=== PATIENT | female | born 1965 | race Caucasian/White ===

== ENCOUNTER 2017-11-05 23:46 | Emergency (ER) | payer OTHER, SELFPAY ==
[2017-11-06 00:04] VITALS: BP 186/93; PULSE 69; RESP 16; TEMP 36.6; O2SAT 100; BMI 26.2
--- NOTE | 2017-11-06 00:18 | DI.CT.S_ITS ---
PROCEDURE: CT HEAD/BRAIN WO CON INDICATIONS: worst headache of life TECHNIQUE: Noncontrast 4.5 mm thick angled axial sections acquired from the foramen magnum to the vertex, with coronal and sagittal reformats. For radiation dose reduction, the following was used: automated exposure control, adjustment of mA and/or kV according to patient size. COMPARISON: Outside Film, MR, MR BRAIN W&WO CON, 04/09/2013, 14:22. [facility], CT, HEAD WITHOUT CONTRAST, 07/06/2015, 10:50. FINDINGS: Preliminary report by evening or night nurse supervisor radiology Image quality: Excellent. CSF spaces: Basal cisterns are patent. No extra-axial fluid collections. Ventricles are normal in size and shape. Brain: No midline shift. No intracranial masses or hemorrhage. Butler-white matter interface is normal. Skull and face: Calvarium and visualized facial bones are intact, without suspicious lesions. Sinuses: Visualized sinuses and mastoids are clear. IMPRESSION: Normal CT brain scan. No evidence of intracranial hemorrhage. Findings are concordant with the preliminary report. Dictated by: Walt Delong M.D. on 11/06/2017 at 8:12 Approved by: Walt Delong M.D. on 11/06/2017 at 8:17
--- NOTE | 2017-11-06 00:23 | ED_ITS ---
HPI - Head Injury General Chief complaint: Head Injury Stated complaint: severe throbbing pain in back of head/neck Time Seen by Provider: 11/06/17 00:11 Source: patient Mode of arrival: ambulatory Limitations: no limitations History of Present Illness HPI Narrative: Patient is a 52-year-old female who presents with severe sudden onset headache. It started while she was having a bowel movement. She has a history of IBS and has had multiple episodes of diarrhea today. This evening around 10 30 her headache started at the base of her head. She denies any fever or chills. She has neck pain but always has neck pain due to spinal stenosis. She took tramadol and atenolol prior to arrival. MD Complaint: head pain Related Data Home Medications Medication Instructions Recorded Confirmed MECLIZINE HCL 25 mg PO #0 11/28/11 atenolol 25 mg PO QDAY #0 11/28/11 montelukast [Singulair] QDAY #0 11/28/11 Allergies Allergy/AdvReac Type Severity Reaction Status Date / Time iodine [IODINE] Allergy Intermediate Unverified 07/05/17 12:22 lansoprazole [LANSOPRAZOLE] Allergy Intermediate Unverified 07/05/17 12:22 KIWI Allergy Unknown Uncoded 07/05/17 12:22 Review of Systems Review of Systems GENERAL: Denies chills, fatigue, malaise, fever, sweats, travel HEENT: Denies sinus pain, ear pain, sore throat, difficulty swallowing, neck pain RESPIRATORY: Denies dyspnea, cough, wheezing, hemoptysis, sputum. CARDIOVASCULAR: Denies chest pain, palpitations, orthopnea, edema GASTROINTESTINAL: Denies nausea, vomiting, abdominal pain, diarrhea, constipation, melena. : Denies dysuria, frequency, incontinence, hematuria, urinary retention, flank pain. MUSCULOSKELETAL: Denies weakness, joint pain, or bony pain SKIN: No rash, no erythema, no pruritus NEUROLOGIC: + headache see HPI PSYCHIATRIC: No concerning psychosocial issues. 12 point review of systems is negative except for those stated above and HPI [facility] Medical History Hypertension (Acute) Social History Smoking Status: Current some day smoker Exam Initial Vital Signs Initial Vital Signs: Vital Signs Temperature 97.9 F 11/06/17 00:04 Pulse Rate 69 11/06/17 00:04 Respiratory Rate 16 11/06/17 00:04 Blood Pressure 186/93 H 11/06/17 00:04 Pulse Oximetry 100 11/06/17 00:04 GENERAL: Well-appearing, well-nourished and in no acute distress. HEENT: Head atraumatic,EOMI, pupils reactive, neck is supple no meningeal signs CARDIOVASCULAR: Regular rate and rhythm without murmurs, rubs or gallops. RESPIRATORY: Breath sounds equal bilaterally, no wheezes rales or rhonchi. ABDOMEN: Soft, nontender. Normoactive bowel sounds all 4 quadrants. No guarding or rebound. : No CVA tenderness EXTREMITIES: Normal range of motion, no clubbing or edema. Neurovascularly intact NEUROLOGICAL: Alert and oriented x4.Normal gait and speech. Cranial nerves II through XII grossly intact. Good [id number], good bgcr-qa-cghp, strength equal bilaterally, no dysarthria or aphasia, sensation in tact to soft touch bilaterally, no visual changes, no facial droop SKIN: Warm, dry, no laceration, no petechiae, no rashes or lesions. Course Orders Ordered: ED Orders 11/06/17 00:18 CT head/brain wo con Stat 11/06/17 00:20 Complete Blood Count AUTO DIFF Stat Comprehensive Metabolic Panel Stat Discontinued Medications Sodium Chloride (Normal Saline 0.9%) 1,000 mls @ 1,000 mls/hr IV BOLUS ONE Stop: 11/06/17 01:17 Last Infusion: 11/06/17 03:10 Dose: 0 mls/hr Admin: 11/06/17 02:00 Dose: 1,000 mls/hr Ketorolac Tromethamine (Toradol) 30 mg IV NOW ONE Stop: 11/06/17 01:54 Last Admin: 11/06/17 02:00 Dose: 30 mg Morphine Sulfate (Morphine) 2 mg IV NOW ONE Stop: 11/06/17 00:19 Last Admin: 11/06/17 00:27 Dose: 2 mg Ondansetron HCl (Zofran) 4 mg IV NOW ONE Stop: 11/06/17 00:19 Last Admin: 11/06/17 00:27 Dose: 4 mg Vital Signs - 8 hr 11/06/17 00:04 11/06/17 00:27 11/06/17 02:05 Temperature 97.9 F Pulse Rate 69 67 Respiratory Rate 16 16 Blood Pressure 186/93 H Blood Pressure [Left Arm] 170/88 H 137/71 H Pulse Oximetry 100 99 11/06/17 03:20 Temperature 98.1 F Pulse Rate 74 Respiratory Rate 16 Blood Pressure 115/63 Blood Pressure [Left Arm] Pulse Oximetry 98 MDM - Head Injury Differential Diagnosis Differential diagnosis: Likely subarachnoid hematoma and subdural hematoma Lab Data Attestation: I reviewed the patient's lab results. Result diagrams: 11/06/17 00:20 11/06/17 00:20 Lab Results 11/06/17 11/06/17 Range/Units 00:20 00:20 WBC 9.7 (4.5-11.0) X10^3/uL RBC 4.39 (4.0-5.2) X10^6/uL Hgb 14.2 (12.0-16.0) g/dL Hct 40.3 (36-46) % MCV 91.7 (80-100) fL MCH 32.2 (26-34) PG MCHC 35.1 (30-36) % RDW 13.3 (11.6-14.8) % Plt Count 221 (150-400) X10^3/uL Neut % (Auto) 67.6 (50-75) % Lymph % (Auto) 15.0 L (25-40) % [place] % (Auto) 9.3 (3-14) % Eos % (Auto) 7.0 H (2-4) % Baso % (Auto) 1.1 (0-2) % Neut # (Auto) 6600 H (3777-5102) /uL Sodium 138 (137-145) mmol/L Potassium 3.3 L (3.4-5.1) mmol/L Chloride 100 (98-107) mmol/L Carbon Dioxide 27 (22-32) mmol/L BUN 15 (7-17) mg/dL Creatinine 0.90 (0.52-1.04) mg/dL Estimated GFR > 60.0 (>60) mL/min BUN/Creatinine Ratio 16.7 (6-22) Glucose 130 H (70-100) mg/dL Calcium 9.8 (8.4-10.2) mg/dL Total Bilirubin 0.6 (0.2-1.3) mg/dL AST 33 (14-36) IU/L ALT 40 (9-52) IU/L Alkaline Phosphatase 113 (38-126) U/L Total Protein 7.2 (6.3-8.2) g/dL Albumin 4.5 (3.5-5.0) g/dL Globulin 2.7 (1.7-4.1) g/dL Albumin/Globulin Ratio 1.7 (1.0-2.8) Imaging Data CT scan - head: 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 Head CT is negative. Toradol given which helped significantly. She has no meningeal signs afebrile no leukocytosis. We did discuss Lumbar Puncture To fully rule out subarachnoid hemorrhage. However at this time she has had such relief with toradol and no focal deficits, it was decided with patient no LP. I discussed all findings with the patient and spouse, Education has been performed regarding treatment plan, diagnosis, warning signs and symptoms and all concerns have been addressed. Verbally agree with and understood all of the above. Discharge Plan Departure Patient Disposition: Home, Self-Care Clinical Impression: Headache Discharge Date/Time: 11/06/17 03:22 Interventions: ED Discharge Assessment Last Done: 11/06/17 03:20 Instructions: DI for Headache Activity Restrictions/Additional Instructions: *You have been diagnosed with headache *What to do: Blood work and CT are negative at this time *Continue to take medications as directed *Follow up with your primary care provider in 2-3 days *Return to ER if you should have worsening headache, weakness, visual changes, vomiting or any new, worsening or concerning symptoms Prescriptions: No Action atenolol 25 MG tablet 25 mg PO QDAY Qty: 0 RF: 0 montelukast [Singulair] 10 MG tablet QDAY Qty: 0 RF: 0 MECLIZINE HCL 25 mg PO Qty: 0 RF: 0 Referrals: Davy Yang MD [Primary Care Provider] -
[2017-11-06 00:27] VITALS: BP 170/88
[2017-11-06] MEDS: MORPHINE 2 MG/ML INJ IV (00:27)
[2017-11-06] MEDS: ONDANSETRON 4 MG/2 ML INJ IV (00:27)
[2017-11-06 00:29] LABS: Add Manual Diff / Slide Review NO; Basophils Percent Auto 1.1 % (0-2); Hematocrit 40.3 % (36-46); Hemoglobin 14.2 g/dL (12.0-16.0); Mean Corpuscular HGB Conc 35.1 % (30-36); Mean Corpuscular Hemoglobin 32.2 PG (26-34); Mean Corpuscular Volume 91.7 fL (80-100); Monocytes Percent Auto 9.3 % (3-14); Neutrophils Absolute Auto 6600 /uL (3000-5900); Neutrophils Percent Auto 67.6 % (50-75); Platelet Count 221 X10^3/uL (150-400); Red Blood Cell Count 4.39 X10^6/uL (4.0-5.2); Red Cell Distribution Width 13.3 % (11.6-14.8); White Blood Cell Count 9.7 X10^3/uL (4.5-11.0)
[2017-11-06 00:42] LABS: Alanine Aminotransferase 40 IU/L (9-52); Albumin 4.5 g/dL (3.5-5.0); Albumin Globulin Ratio 1.7 (1.0-2.8); Alkaline Phosphatase 113 U/L (38-126); Aspartate Aminotransferase 33 IU/L (14-36); BUN Creatinine Ratio 16.7 (6-22); Bilirubin Total 0.6 mg/dL (0.2-1.3); Blood Urea Nitrogen 15 mg/dL (7-17); Calcium 9.8 mg/dL (8.4-10.2); Carbon Dioxide 27 mmol/L (22-32); Chloride 100 mmol/L (98-107); Estimated Glomerular Filt Rate > 60.0 mL/min (>60); Globulin 2.7 g/dL (1.7-4.1); Glucose 130 mg/dL (70-100); HEMOLYSIS < 15 (0-50); Potassium 3.3 mmol/L (3.4-5.1); Sodium 138 mmol/L (137-145); Total Protein 7.2 g/dL (6.3-8.2)
[2017-11-06] MEDS: KETOROLAC 60 MG/2 ML VIAL 30 MG IV (02:00)
[2017-11-06] MEDS: SODIUM CHLORIDE 0.9% 1,000 ML 1000 ML IV (02:00)
[2017-11-06 02:05] VITALS: BP 137/71; PULSE 67; RESP 16; O2SAT 99
[2017-11-06 03:20] VITALS: BP 115/63; PULSE 74; RESP 16; TEMP 36.7; O2SAT 98
== END 2017-11-06 03:22 | disposition home or self-care (01) ==
PROVIDERS: Emergency Provider Emergency Medicine; PCP Family Medicine
DX: R51 Headache (principal)
CPT/HCPCS: 36591; 70450; 80053; 85025; 96361; 96374; 96375; 99283; 99284; 99291; J1885; J2270; J2405

== ENCOUNTER 2017-12-20 13:07 | Emergency (ER) | payer OTHER, SELFPAY ==
[2017-12-20] VITALS (7 sets, daily range): BP systolic 104–157; BP diastolic 60–81; PULSE 65–83; RESP 13–22; TEMP 37.1; O2SAT 96–98; BMI 26.2
--- NOTE | 2017-12-20 13:16 | ED_ITS ---
HPI - Chest Pain General Chief Complaint: Chest Pain Stated Complaint: states chest pain and seratonin syndrom Time Seen by Provider: 12/20/17 13:16 Source: patient Mode of arrival: ambulatory Limitations: no limitations History of Present Illness HPI narrative: Patient is a 52-year-old female here for evaluation of chest pain. She states that it started approximately 2 hr prior to arrival here in the emergency department. She was at work [place]ing [place] when the symptoms started. She does state that is a burning sensation that is retrosternal. She states she also does upper abdominal pain. Also has had a lot of burping and gas. No prior abdominal surgeries. No fevers. No shortness of breath. Pain not worse with palpation or movement. Patient also is concerned about the potential for serotonin syndrome. She states that she has been told in the past that she is on some medicines that could potentially cause this. Patient denies any fevers, vision changes, tremors,. Related Data Home Medications Medication Instructions Recorded Confirmed atenolol 25 mg PO QDAY #0 11/28/11 12/20/17 Equate Gas Relieve & Prevention 1 tab PO PRN PRN 12/20/17 12/20/17 Liver Aid 1 cap PO DAILY 12/20/17 12/20/17 Triple Turmeric 1 cap PO DAILY 12/20/17 12/20/17 acetaminophen [Tylenol 8 Hour] 1 tab PO PRN PRN 12/20/17 12/20/17 albuterol sulfate [ProAir HFA] 1 puff INHALATION DIRECTED 12/20/17 12/20/17 [id number] 1 tab PO PRN PRN 12/20/17 12/20/17 [Excedrin Migraine] cyclobenzaprine 10 mg PO TID PRN 12/20/17 12/20/17 epinephrine [EpiPen] 0.3 ml IM PRN PRN 12/20/17 12/20/17 gabapentin [Neurontin] 600 mg PO BID 12/20/17 12/20/17 hydrochlorothiazide 25 mg PO DAILY 12/20/17 12/20/17 loratadine 10 mg PO DAILY 12/20/17 12/20/17 meclizine [Travel Sickness 25 mg PO DIRECTED 12/20/17 12/20/17 (meclizine)] pravastatin 10 mg PO BEDTIME 12/20/17 12/20/17 rizatriptan 5 mg PO PRN PRN MDD 30 mg 12/20/17 12/20/17 sertraline 1 tab PO DAILY 12/20/17 12/20/17 simethicone 125 mg PO BID-QID PRN 12/20/17 12/20/17 tramadol 50 mg PO BID PRN 12/20/17 12/20/17 Allergies Allergy/AdvReac Type Severity Reaction Status Date / Time iodine [IODINE] Allergy Intermediate Unverified 07/05/17 12:22 lansoprazole [LANSOPRAZOLE] Allergy Intermediate Unverified 07/05/17 12:22 KIWI Allergy Unknown Uncoded 07/05/17 12:22 Review of Systems Constitutional Denies fatigue, Denies fever(s), Denies headache(s), Denies lethargy, Denies malaise and Denies weakness ENT Ears, Nose, Mouth, and Throat: Denies vertigo, Denies dizziness and Denies headache(s) Cardiovascular Reports chest pain, Denies syncope, Denies leg edema, Denies palpitations, Denies dyspnea and Denies dyspnea on exertion Respiratory Denies cough, Denies dyspnea and Denies dyspnea on exertion Gastrointestinal Gastrointestinal: Denies abdominal pain, Denies diarrhea, Denies nausea and Denies vomiting Musculoskeletal Denies myalgias and Denies arthralgias Integumentary/Breasts Denies lesions and Denies rash Neurologic Denies behavioral changes, Denies vertigo, Denies dizziness, Denies syncope, Denies headache(s) and Denies weakness Psychiatric Denies behavioral changes Endocrine Denies fatigue and Denies palpitations Hematologic/Lymphatic Denies easy bleeding and Denies easy bruising [facility] Medical History Hypertension (Acute) Surgical History No pertinent past surgical history (Acute) Social History Smoking Status: Current some day smoker Exam Initial Vital Signs Initial Vital Signs: Vital Signs Temperature 98.7 F 12/20/17 13:16 Pulse Rate 83 12/20/17 13:16 Respiratory Rate 13 12/20/17 13:16 Blood Pressure 157/76 H 12/20/17 13:16 Pulse Oximetry 98 12/20/17 13:16 Const General: cooperative, healthy appearing, comfortable, well developed, well groomed and No acute distress Orientation: alert, awake and oriented x3 Resp Effort & Inspection: normal respiratory effort Auscultation: clear to auscultation bilaterally Cardio Rate: regular rate Rhythm: regular rhythm Heart Sounds: no murmurs Pulses: radial pulses present GI Inspection: normal to inspection and abdominal wall ecchymosis Palpation: soft and No tender Skin Lesions: no lesions Rashes: no rashes Neuro General: alert, awake and oriented x3 Cognition: normal cognition Speech: speech normal Gait: normal gait Motor: muscle tone normal throughout Sensory Exam: no sensory deficits noted Extrem General: normal to inspection and capillary refill normal Psych Appearance: grossly normal and well kempt Course Orders Ordered: ED Orders 12/20/17 13:16 EKG-12 Lead Stat 12/20/17 13:20 B Type Natriuretic Peptide Stat Complete Blood Count AUTO DIFF Stat Comprehensive Metabolic Panel Stat Troponin I Stat 12/20/17 13:21 XR chest 1V Stat 12/20/17 13:35 Lactate (Lactic Acid) Stat 12/20/17 16:56 Troponin I Stat Vital Signs - 8 hr 12/20/17 13:16 12/20/17 13:30 12/20/17 14:00 Temperature 98.7 F Pulse Rate 83 71 67 Respiratory Rate 13 17 19 Blood Pressure 157/76 H Blood Pressure [Left Arm] 130/81 108/60 Pulse Oximetry 98 96 97 12/20/17 14:30 12/20/17 15:00 12/20/17 15:30 Temperature Pulse Rate 68 72 65 Respiratory Rate 19 22 18 Blood Pressure Blood Pressure [Left Arm] 111/60 120/62 104/66 Pulse Oximetry 98 97 97 12/20/17 16:00 Temperature Pulse Rate 65 Respiratory Rate 15 Blood Pressure Blood Pressure [Left Arm] 106/65 Pulse Oximetry 98 MDM - Chest Pain Lab Data Attestation: I reviewed the patient's lab results. Result diagrams: 12/20/17 13:20 12/20/17 13:20 Lab Results 12/20/17 12/20/17 12/20/17 Range/Units 13:20 13:20 13:20 WBC 9.6 (4.5-11.0) X10^3/uL RBC 4.58 (4.0-5.2) X10^6/uL Hgb 14.4 (12.0-16.0) g/dL Hct 41.3 (36-46) % MCV 90.3 (80-100) fL MCH 31.4 (26-34) PG MCHC 34.7 (30-36) % RDW 13.0 (11.6-14.8) % Plt Count 233 (150-400) X10^3/uL Neut % (Auto) 54.3 (50-75) % Lymph % (Auto) 28.7 (25-40) % [place] % (Auto) 8.6 (3-14) % Eos % (Auto) 7.8 H (2-4) % Baso % (Auto) 0.6 (0-2) % Neut # (Auto) 5200 (4149-9071) /uL Sodium 143 (137-145) mmol/L Potassium 3.0 L (3.4-5.1) mmol/L Chloride 101 (98-107) mmol/L Carbon Dioxide 31 (22-32) mmol/L BUN 22 H (7-17) mg/dL Creatinine 1.00 (0.52-1.04) mg/dL Estimated GFR 58.0 L (>60) mL/min BUN/Creatinine Ratio 22.0 (6-22) Glucose 121 H (70-100) mg/dL Lactate (0.7-2.1) mmol/L Calcium 9.6 (8.4-10.2) mg/dL Total Bilirubin 1.0 (0.2-1.3) mg/dL AST 29 (14-36) IU/L ALT 38 (9-52) IU/L Alkaline Phosphatase 88 (38-126) U/L Troponin I < 0.012 Cancelled (0.01-0.034) ng/mL B-Natriuretic Peptide < 100.0 (<100) Total Protein 7.7 (6.3-8.2) g/dL Albumin 4.8 (3.5-5.0) g/dL Globulin 2.9 (1.7-4.1) g/dL Albumin/Globulin Ratio 1.7 (1.0-2.8) 12/20/17 12/20/17 Range/Units 13:35 16:56 WBC (4.5-11.0) X10^3/uL RBC (4.0-5.2) X10^6/uL Hgb (12.0-16.0) g/dL Hct (36-46) % MCV (80-100) fL MCH (26-34) PG MCHC (30-36) % RDW (11.6-14.8) % Plt Count (150-400) X10^3/uL Neut % (Auto) (50-75) % Lymph % (Auto) (25-40) % [place] % (Auto) (3-14) % Eos % (Auto) (2-4) % Baso % (Auto) (0-2) % Neut # (Auto) (0511-7417) /uL Sodium (137-145) mmol/L Potassium (3.4-5.1) mmol/L Chloride (98-107) mmol/L Carbon Dioxide (22-32) mmol/L BUN (7-17) mg/dL Creatinine (0.52-1.04) mg/dL Estimated GFR (>60) mL/min BUN/Creatinine Ratio (6-22) Glucose (70-100) mg/dL Lactate 0.6 L (0.7-2.1) mmol/L Calcium (8.4-10.2) mg/dL Total Bilirubin (0.2-1.3) mg/dL AST (14-36) IU/L ALT (9-52) IU/L Alkaline Phosphatase (38-126) U/L Troponin I < 0.012 (0.01-0.034) ng/mL B-Natriuretic Peptide (<100) Total Protein (6.3-8.2) g/dL Albumin (3.5-5.0) g/dL Globulin (1.7-4.1) g/dL Albumin/Globulin Ratio (1.0-2.8) Imaging Data Chest x-ray: Radiologist's impression: PROCEDURE: XR CHEST 1V INDICATIONS: chest pain TECHNIQUE: One view of the chest was acquired. COMPARISON: [facility], , CHEST 1 VIEW, 07/06/2015, 10:51. FINDINGS: Surgical changes and devices: None. Lungs and pleura: No pleural effusions or pneumothorax. Lungs are clear. Mediastinum: Mediastinal contours appear normal. Heart size is normal. Bones and chest wall: No suspicious bony lesions. Overlying soft tissues appear unremarkable. IMPRESSION: Stable chest. No acute cardiopulmonary process is evident. Dictated by: Corey Lacy M.D. on 12/20/2017 at 12:47 Approved by: Corey Lacy M.D. on 12/20/2017 at 12:49 ECG Data Attestation: I personally reviewed and interpreted this ECG as follows: Prior ECG tracings: not available for review Interpretation: Sinus rhythm Ventricular rate as 69 Normal axis Normal QRS Normal QTC Nonspecific ST T wave changes MDM Narrative Medical decision making narrative: Patient with atypical chest pain symptoms. Nonischemic EEG. Chest x-ray unremarkable. Troponins negative x2 with the 2nd being greater than 6 hr after the onset of the symptoms. I have a strong suspicion that the patient's symptoms are GI related. She was instructed to contact her primary care doctor to discuss referral to see Gastroenterology. She was given return precautions. She expressed understanding and agreement with plan. Discharge Plan Departure Patient Disposition: Home Clinical Impression: Atypical chest pain Discharge Date/Time: 12/20/17 18:06 Instructions: DI for Atypical Chest Pain Activity Restrictions/Additional Instructions: Recommend that you talk with your primary doctor about scheduling a outpatient stress test. 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 Return to the emergency department for any new or worsening symptoms. Prescriptions: No Action atenolol 25 MG tablet 25 mg PO QDAY Qty: 0 RF: 0 gabapentin [Neurontin] 600 mg tablet 600 mg PO BID RF: 0 sertraline 100 mg tablet 1 tab PO DAILY RF: 0 tramadol 50 mg tablet 50 mg PO BID PRN (Reason: pain) RF: 0 hydrochlorothiazide 25 mg tablet 25 mg PO DAILY RF: 0 albuterol sulfate [ProAir HFA] 90 mcg/actuation HFA aerosol inhaler 1 puff Inhalation DIRECTED RF: 0 loratadine 10 mg tablet 10 mg PO DAILY RF: 0 rizatriptan 5 mg tablet 5 mg PO PRN MDD 30 mg PRN (Reason: Migraine Headache) RF: 0 meclizine [Travel Sickness (meclizine)] 25 mg tablet,chewable 25 mg PO DIRECTED RF: 0 cyclobenzaprine 10 mg Tablet 10 mg PO TID PRN (Reason: Spasms) RF: 0 epinephrine [EpiPen] 0.3 mg/0.3 mL Auto-Injector 0.3 ml IM PRN PRN (Reason: Allergic Reaction) RF: 0 gmbwmog-wvncqxhdciwbf-dlrjcktf [Excedrin Migraine] 250-250-65 mg Tablet 1 tab PO PRN PRN (Reason: Migraine Headache) RF: 0 acetaminophen [Tylenol 8 Hour] 650 mg Tablet Extended Release 1 tab PO PRN PRN (Reason: pain) RF: 0 pravastatin 10 mg Tablet 10 mg PO BEDTIME RF: 0 simethicone 125 mg Tablet 125 mg PO BID-QID PRN (Reason: gas) RF: 0 Equate Gas Relieve & Prevention 1 tab PO PRN PRN (Reason: gas) RF: 0 Liver Aid 296 mg capsule 1 cap PO DAILY RF: 0 Triple Turmeric 1 cap PO DAILY RF: 0
--- NOTE | 2017-12-20 13:21 | DI.RAD.S_ITS ---
PROCEDURE: XR CHEST 1V INDICATIONS: chest pain TECHNIQUE: One view of the chest was acquired. COMPARISON: [facility], , CHEST 1 VIEW, 07/06/2015, 10:51. FINDINGS: Surgical changes and devices: None. Lungs and pleura: No pleural effusions or pneumothorax. Lungs are clear. Mediastinum: Mediastinal contours appear normal. Heart size is normal. Bones and chest wall: No suspicious bony lesions. Overlying soft tissues appear unremarkable. IMPRESSION: Stable chest. No acute cardiopulmonary process is evident. Dictated by: Corey Lacy M.D. on 12/20/2017 at 12:47 Approved by: Corey Lacy M.D. on 12/20/2017 at 12:49
[2017-12-20 13:27] LABS: Add Manual Diff / Slide Review NO; Basophils Percent Auto 0.6 % (0-2); Eosinophils Percent Auto 7.8 % (2-4); Hematocrit 41.3 % (36-46); Hemoglobin 14.4 g/dL (12.0-16.0); Lymphocytes Percent Auto 28.7 % (25-40); Mean Corpuscular HGB Conc 34.7 % (30-36); Mean Corpuscular Hemoglobin 31.4 PG (26-34); Mean Corpuscular Volume 90.3 fL (80-100); Monocytes Percent Auto 8.6 % (3-14); Neutrophils Absolute Auto 5200 /uL (3000-5900); Neutrophils Percent Auto 54.3 % (50-75); Platelet Count 233 X10^3/uL (150-400); Red Blood Cell Count 4.58 X10^6/uL (4.0-5.2); White Blood Cell Count 9.6 X10^3/uL (4.5-11.0)
[2017-12-20 13:39] LABS: Alanine Aminotransferase 38 IU/L (9-52); Albumin 4.8 g/dL (3.5-5.0); Albumin Globulin Ratio 1.7 (1.0-2.8); Alkaline Phosphatase 88 U/L (38-126); Aspartate Aminotransferase 29 IU/L (14-36); Blood Urea Nitrogen 22 mg/dL (7-17); Calcium 9.6 mg/dL (8.4-10.2); Carbon Dioxide 31 mmol/L (22-32); Chloride 101 mmol/L (98-107); Globulin 2.9 g/dL (1.7-4.1); Glucose 121 mg/dL (70-100); HEMOLYSIS < 15 (0-50); Sodium 143 mmol/L (137-145); Total Protein 7.7 g/dL (6.3-8.2)
[2017-12-20 13:59] LABS: Lactate (Lactic Acid) 0.6 mmol/L (0.7-2.1)
[2017-12-20 14:11] LABS: B Type Natriuretic Peptide < 100.0 (<100)
[2017-12-20 15:02] LABS: Troponin I < 0.012 ng/mL (0.01-0.034)
[2017-12-20 17:27] LABS: Troponin I < 0.012 ng/mL (0.01-0.034)
== END 2017-12-20 18:06 | disposition home or self-care (01) ==
PROVIDERS: Emergency Provider Emergency Medicine; PCP Family Medicine
DX: R07.89 Other chest pain (principal)
CPT/HCPCS: 36415; 36591; 71045; 80053; 83605; 83880; 84484; 85025; 93005; 93041; 99283; 99285